=== PATIENT | female | born 1985 | race Caucasian/White ===

== ENCOUNTER 2020-12-20 10:39 | Emergency (ER) | payer BC, OTHER ==
[2020-12-20 12:47] LABS: HEMOGLOBIN 14.4 gm/dl (12.3-15.3); RED BLOOD COUNT 4.69 M/UL (4.00-5.10); WHITE BLOOD COUNT 12.2 K/UL (4.5-11.0)
[2020-12-20 13:26] LABS: BUN/CREATININE RATIO 14 (0-10)
[2020-12-20] MEDS ORDERED: NAPROSYN500 MG PO (16:02)
[2021-01-17] MEDS ORDERED: METOPROLOL TART25 MG PO (08:36)
[2021-01-17] MEDS ORDERED: NEXIUM40 M1 PO (08:37)
[2021-01-17] MEDS ORDERED: VERAPAMIL ER180 MG PO (08:37)
[2021-01-17] MEDS ORDERED: BIRTH CONTROL PO (08:38)
[2021-01-17] MEDS ORDERED: ZYRTEC10 M2 PO (08:38)
[2021-01-17] MEDS ORDERED: PROTONIX 40 MG40 M1 PO (08:38)
== END 2020-12-20 17:10 | disposition home or self-care (01) ==
LOC: ER1 10:39
PROVIDERS: Internal Medicine
DX: R07.9 Chest pain, unspecified (principal); I10 Essential (primary) hypertension; K21.9 Gastro-esophageal reflux disease without esophagitis
CPT/HCPCS: 71046; 80053; 80307; 81001; 82550; 82553; 84439; 84443; 84484; 84703; 85025; 85610; 85730; 99285

== ENCOUNTER → 2020-12-21 | Outpatient (CLI) | payer BC, OTHER ==
[~2020-12-21] MED LIST: BIRTH CONTROL PO; METOPROLOL TART25 MG PO; NAPROSYN500 MG PO; NEXIUM40 M1 PO; PROTONIX 40 MG40 M1 PO; VERAPAMIL ER180 MG PO; ZYRTEC10 M2 PO
== END ==
LOC: HEART 5 12-05 11:00 → NM 12-08 08:00 → ECHO 12-08 11:00 → NM 08:57
DX: R06.02 Shortness of breath (principal); R07.9 Chest pain, unspecified
CPT/HCPCS: ECHO; 93306

== ENCOUNTER → 2021-01-17 | Day surgery (SDC) | payer BC, OTHER | END | disposition home or self-care (01) | LOC: OR 02:45 | DX: K29.50 Unspecified chronic gastritis without bleeding (principal); K64.0 First degree hemorrhoids; K64.4 Residual hemorrhoidal skin tags; K60.2 Anal fissure, unspecified; I10 Essential (primary) hypertension; K90.0 Celiac disease; K21.9 Gastro-esophageal reflux disease without esophagitis; Z79.899 Other long term (current) drug therapy | CPT/HCPCS: 84703; J2704; J7040 ==